=== PATIENT | female | born 1955 | race Caucasian/White ===

== ENCOUNTER 2025-10-07 08:40 | Outpatient (CLI) | payer MEDICARE, OTHER ==
[2025-10-07 09:30] LABS: CREATININE 0.79 MG/DL (0.40-0.90); TOTAL CARBON DIOXIDE 31.1 MMOL/L (24-32); eGFR 72 ML/MIN
--- NOTE | 2025-10-07 12:52 | RADIOLOGY REPORT ---
CLINICAL HISTORY: MALIGNANT NEOPLASM OF UPPER LOBE, LEFT BRONCHUS OR LUNG. TECHNIQUE: Multi sequence multi planar MRI images of the thoracic spine were obtained prior to and after the uneventful administration of 15 mL Clariscan contrast. COMPARISON: None FINDINGS: Vertebral body alignment is within normal limits. No significant spondylolisthesis. Vertebral body heights are maintained. There is a stir hyperintense and T1 hypointense lesion in the posterior aspect of the T7 vertebral body with mild expansion of the posterior cortex, suspected metastasi s, demonstrating avid postcontrast enhancement. Slightly increased epidural enhancement adjacent to the lesion, possible epidural extension of the metastasis. A smaller focal area of STIR hyperintense signal and enhancement at the posterior aspect of the T11 vertebral body, not correlated on the precon trast T1 weighted images measures up to 0.9 cm, may be associated with the internal vertebral venous plexus, although metastasis not excluded. There is also a faint area of STIR hyperintense signal and enhancement in the T10 vertebral body measuring up to 1.1 cm, not correlated on the T1 weighted preco ntrast images, also possibly associated with the internal vertebral venous plexus, however metastasis not completely excluded. Multilevel degenerative disc disease in the thoracic spine with disc desiccation in areas of [id number] disc space narrowing. No significant disc bulge or spinal canal stenosis in the thoracic spine. No significant neural foraminal stenosis. Partially visualized areas of signal abnormality and enhancement in the left lung, likely associated with the known primary malignancy. IMPRESSION: 1. Metastasis at the posterior aspect of the T7 vertebral body. Possible extension of disease into the adjacent epidural space, with mildly thickened epidural enhancement adjacent to the lesion. 2. Focal areas of stir hyperintense signal and enhancement in the T10 and T11 vertebral bodies near the location of the internal vertebral venous plexus, may be due to focal signal abnormality associated with the venous plexus in these locations, with no definite correlate on the T1 weighted images. Metastasis not completely excluded. Correlation with clinical findings and CT may be helpful to further evaluate these areas. 3. Additional findings as described above. Critical findings Critical Result: Vertebral metastatic disease, possible epidural extension of disease. Findings discussed with LIZZY RAMIREZ at 10/07/2025 02:45 PM DESIGN STUDIO CONSULTANT, and acknowledged receipt and understanding of the findings. ..
[2025-10-07] MEDS ORDERED: GADOTERATE MEGLUMINE 7.5 MMOL/15 ML VIAL IV ONE (15:36)
== END 2025-10-07 23:59 | disposition home or self-care (01) ==
LOC: MRI 08:40
PROVIDERS: ATTEND Student in an Organized Health Care Education/Training Program
DX: C34.12 Malignant neoplasm of upper lobe, left bronchus or lung (principal); C79.51 Secondary malignant neoplasm of bone; M51.34 Other intervertebral disc degeneration, thoracic region; M48.04 Spinal stenosis, thoracic region
CPT/HCPCS: 36415; 72157; 80053; A9575